=== PATIENT | female | born 1995 | race Caucasian/White ===

== ENCOUNTER 2023-10-02 16:37 | Emergency (ER) | payer BC, SELFPAY ==
[2023-10-02 16:39] VITALS: BP 117/79
--- NOTE | 2023-10-02 17:13 | ED.MUSCINJ ---
HPI-Injury
General
Chief Complaint: Musculo-Skeletal Complaint
Source: patient and family
Exam Limitations: none
Time Seen by Provider: 10/02/23 17:02
Nursing documentation reviewed up to this point in time: agreed with
Travel History
Have you had any contact with someone who has COVID-19?: No
Do you have any symptoms of coronavirus? Fever > 100 degrees, chills, cough, shortness of breath, sore throat, loss of taste or smell, muscle aches, or headache?: No
History of Present Illness-Injury
Is this injury a work related problem?: No
Is pt an associate of [facility]?: No
Initial Injury comments:
28-year-old female presents emergency department complaining of a dislocated right shoulder. She was doing PT exercises at the time. She says it often goes out but goes back in.
Past History
Past History
ED Past Medical History: Asthma, Psychiatric (Multiple Suicide attempts) and Other (Migraine headaches, OCD, autism, general anxiety, restless leg syndrome)
ED Past Surgical History: Other ([place] teeth extraction)
Social History
Tobacco: Non-smoker
Alcohol: None
Drug: None
Personal: Single
Living: with family (resides with parents)
Employment: Other (volunteering)
Family History
Family History: Other (no family history of cerebral aneurysm, brother and aunt with migraine headaches)
Review of Systems
Review of Systems
Allergies reviewed?: Yes
All Other Systems: Not applicable
Constitutional: Reports no symptoms
EENT: Reports no symptoms
Respiratory: Reports no symptoms
Cardiac: Reports no symptoms
ABD/GI: Reports no symptoms
: Reports no symptoms
Musculoskeletal: Reports joint pain
Skin: Reports no symptoms
Neurological: Reports numbness (Right hand)
Endocrine: Reports no symptoms
Hematologic/Lymphatic: Reports no symptoms
Psychiatric: Reports no symptoms
Phy Exam
Physical Exam
Physical Exam:
Physical Exam
General: Moderate distress, afebrile
Neck: supple. no meningeal signs. normal posterior pharynx
Heart: s1/s2 regular rate and rhythm, no murmur. equal radial
pulses.
HEENT: Pupils equal round reactive to light, EOMI
Lungs: no acute respiratory distress. clear bilaterally
Abdomen: normal bowel sounds. not tender. no CVAT
Neuro: alert and oriented. no focal neurological deficits cranial nerves II through XII intact
Skin: no rash
Psychiatric: well kept. interactive and cooperative
Extremities: no edema. no calf tenderness. negative homans. good distal pulses Limited range of motion right shoulder
Injury Course
Orders/Labs/Results
Orders:
Orders
10/02/23 17:11
IV Insert/Care/Rem.- Treatment PRN
HYDROmorphone [Dilaudid] 1 mg IV NOW STA
Ondansetron Injectable [Zofran] 4 mg IV NOW STA
Shoulder, Right 2 Views [CR Shoulder - Right Min 2 View] Urgent
Comment:
Reason For Exam: right shoulder pain, felt it pop out
10/02/23 19:09
Sling Right-Treatment ONCE
MDM/Problems Addressed
Differential Diagnosis Includes:
Shoulder dislocation, subluxation, sprain
MDM/Problems Addressed:
28-year-old female with right shoulder sprain versus subluxation. No signs of dislocation on x-ray, stable for discharge.
Chronic conditions affecting care: Other (Zeny-Danjahs)
Acute Exacerbation and/or Progression of Chronic Illness: Other (Zeny-Danlos)
*Radiology
Radiology exam reviewed: radiology read reviewed (Right shoulder x-ray no signs of dislocation)
*Pulse Oximetry
Patient hypoxic: no
*EKG
Interpreted by ED Provider?: NA
*Putty Glazer Interpretation
Rate: Putty Glazer- N/A
*Critical Care Note
Total Time (30-74mins, 75-104mins- exclusive of procedures): Not Applicable
Data Reviewed
Further Testing Considered But Not Given:
CT scan considered, but not indicated
Patient Management
Social determinants of health affecting care: Living situation
Discussion with other providers: Radiologist (Discussed x-ray with radiology)
Escalation/DeEscalation of care consider admission/obs:
Admit not indicated
ED Attending Note
-
Portions of this chart may have been created with voice recognition software.� Occasional wrong word or��sound alike� substitutions may have occurred due to the inherent limitations of voice recognition software.
Discharge Plan
Departure
Patient Disposition: Home (Routine Discharge)
Date of Disposition: 10/02/23
Time of Disposition: 19:05
Patient with high blood pressure during this ER visit?: No
Condition: Good
Discharge Problem:
Sprain of right shoulder
Instructions: Sprain (DC)
Prescriptions:
No Action
magnesium oxide 500 MG capsule
500 mg PO DAILY
riboflavin (vitamin B2) 400 MG tablet
400 mg PO DAILY
fluticasone propionate [Flovent HFA] 1 PUFF HFA aerosol inhaler
2 puff inhalation R BID Qty: 1 0RF
multivitamin with folic acid [Tab-A-Marshall] 1 TABLET tablet
1 tab PO BID
clonazepam 1 MG tablet
1 mg PO HS
fluoxetine 20 MG capsule
40 mg PO DAILY 0RF
lamotrigine 100 MG tablet
100 mg PO DAILY 0RF
aripiprazole 10 MG tablet
10 mg PO HS 0RF
lithium carbonate 300 MG capsule
300 mg PO HS 4 Days 0RF
oxycodone 5 mg tablet
5 mg PO Q4H PRN (Reason: pain) Qty: 7 0RF
prednisone 20 mg tablet
20 mg PO DAILY 4 Days Qty: 4 0RF
alprazolam [Xanax] 0.25 mg tablet
0.25 mg PO BID PRN (Reason: anxiety) Qty: 7 0RF
Referrals:
Elly Giraldo MD [Family Provider] -
Interventions
Interventions:
*Risk Screen - Suicide Last Done: 10/02/23 19:41
*General Assessment Last Done: 10/02/23 16:39
*Neglect/Abuse Screening Last Done: 10/02/23 19:41
ED- Fall Risk Assessment Last Done: 10/02/23 19:41
*ED COVID-19 Vaccine History Last Done: 10/02/23 16:39
*Nursing Disposition Last Done: 10/02/23 19:41
ED-Musculoskeletal Assessment Last Done: 10/02/23 17:20
Discharge Date and Time
Discharge Date/Time: 10/02/23 19:42
[2023-10-02] MEDS: DILAUDID 1 MG IV (17:21)
[2023-10-02] MEDS: ZOFRAN 4 MG IV (17:21)
[2023-10-02 19:30] VITALS: BP 117/68
== END 2023-10-02 19:42 | disposition home or self-care (01) ==
LOC: EMR 16:37
PROVIDERS: EMERGENCY PHYSICIAN Emergency Medicine; FAMILY PHYSICIAN Internal Medicine
DX: S43.401A Unspecified sprain of right shoulder joint, initial encounter (principal); X58.XXXA Exposure to other specified factors, initial encounter; J45.909 Unspecified asthma, uncomplicated; F42.9 Obsessive-compulsive disorder, unspecified; F84.0 Autistic disorder; G25.81 Restless legs syndrome; Z91.51 Personal history of suicidal behavior
CPT/HCPCS: 99283; 96374; 96375; 73030

== ENCOUNTER → 2023-10-18 07:33 | Outpatient (REF) | payer BC, SELFPAY | LOC: MRI 3T 07:33 | PROVIDERS: ATTENDING PHYSICIAN Orthopaedic Surgery | DX: M25.511 Pain in right shoulder (principal); M54.12 Radiculopathy, cervical region | CPT/HCPCS: 72141 ==

== ENCOUNTER 2023-12-11 19:04 | Emergency (ER) | payer BC, SELFPAY ==
[2023-12-11 19:05] VITALS: BMI 30.8
[2023-12-11 19:08] VITALS: BP 128/95
--- NOTE | 2023-12-11 21:38 | ED.GENMED ---
History of Present Illness
General
Chief Complaint: Back Pain
Source: patient
Exam Limitations: none
Time Seen by Provider: 12/11/23 21:21
Nursing documentation reviewed up to this point in time: agreed with
Travel History
Have you had any contact with someone who has COVID-19?: Yes
Comment: begining of november
Do you have any symptoms of coronavirus? Fever > 100 degrees, chills, cough, shortness of breath, sore throat, loss of taste or smell, muscle aches, or headache?: No
History of Present Illness
History of Present Illness:
The patient is a 28-year-old female with a past medical history of Ehlos Danlos syndrome, bipolar disorder, restless leg syndrome, and anxiety who reports mid to upper back pain that started yesterday while she was doing physical therapy. Patient
reports that the back pain seems to radiate into her chest. She reports it is worse with movement and breathing. Patient appears extremely anxious. She reports she is due for her bipolar medication. Patient denies cough and fever.
Past History
Past History
ED Past Medical History: Asthma, Psychiatric (Multiple Suicide attempts, bipolar disorder) and Other (Migraine headaches, OCD, autism, general anxiety, restless leg syndrome, Zeny-Danlos)
ED Past Surgical History: Other ([place] teeth extraction)
Social History
Tobacco: Non-smoker
Alcohol: None
Drug: None
Personal: Single
Living: with family (resides with parents)
Employment: Other (volunteering)
Family History
Family History: Other (no family history of cerebral aneurysm, brother and aunt with migraine headaches)
Review of Systems
Review of Systems
Allergies reviewed?: Yes
Other source history: family
All Other Systems: ROS reviewed and negative except as documented in HPI and ROS
Constitutional: Reports no symptoms
EENT: Reports no symptoms
Respiratory: Reports no symptoms
Cardiac: Reports chest pain
ABD/GI: Reports no symptoms
: Reports no symptoms
Musculoskeletal: Reports back pain
Skin: Reports no symptoms
Neurological: Reports no symptoms
Endocrine: Reports no symptoms
Hematologic/Lymphatic: Reports no symptoms
Psychiatric: Reports no symptoms
Phy Exam
Physical Exam
Physical Exam:
Physical Exam
General: Patient appears mildly tremulous and anxious but no acute distress
Neck: supple. no meningeal signs. normal psoterior pharynx
Heart: s1/s2 regular rate and rhythm, no murmur. equal radial pulses.
Lungs: no acute respiratory distress. clear bilaterally. Right upper thoracic soft tissue tenderness without erythema, rash or deformity
Abdomen: normal bowel sounds. not tender. no CVAT, no pulsatile mass
Neuro: alert and oriented. no focal neurological deficits, 5 out of 5 strength in all extremities. No saddle anesthesia
Skin: no rash
Psychiatric: well kept. interactive and cooperative, very anxious appearing
Extremities: no edema. no calf tenderness. negative homans. good distal pulses. Strong pulses in bilateral feet
Course
Orders/Labs/Results
Orders:
Orders
12/11/23 21:50
Electrocardiogram (*1) Urgent
Reason for Study: Chest Pain
CT Chest/abd/pelvis Angio W/wo Urgent
Comment:
Reason For Exam: CP into upper back, Ehlos Danlos
EKG- Treatment ONCE
Test Result ONCE
12/11/23 21:58
Complete Blood Count/With Diff Urgent
Comprehensive Metabolic Panel Urgent
HCG, Serum Qualitative Screen Urgent
Troponin I Urgent
12/12/23 00:07
Ketorolac [Toradol] 30 mg IV NOW STA
Abnormal Lab Results
12/11/23
21:58
RBC 3.76 L 10^6/uL
(4.20-5.40)
Hct 35.8 L %
(37.0-47.0)
MCH 32.2 H pg
(27.0-31.0)
Abs Immat Gran (auto) 0.1 H 10^3/uL
(0-0.05)
Immature Gran % 0.7 H %
(0-0.5)
Chloride 108 H mmol/L
(98-107)
Glucose 144 H mg/dl
(70-99)
12/11/23 21:58
12/11/23 21:58
Vital Signs
Initial and Last Documented VS:
Initial Vital Signs
Temp Pulse Resp BP Pulse Ox
98.5 F 112 18 128/95 97
12/11/23 19:08 12/11/23 19:08 12/11/23 19:08 12/11/23 19:08 12/11/23 19:08
Last Documented Vital Signs
Temp Pulse Resp BP Pulse Ox
98.5 F 61 16 130/70 97
12/11/23 19:08 12/11/23 22:00 12/11/23 22:00 12/11/23 22:00 12/11/23 22:00
MDM/Problems Addressed
Differential Diagnosis Includes:
PE, aortic dissection, muscle spasm
MDM/Problems Addressed:
Patient presents with acute chest pain and right upper back pain
Chronic conditions affecting care:
Connective tissue disease increases the risk of aortic dissection
*Radiology
Radiology exam reviewed: radiology read reviewed
*Pulse Oximetry
Patient hypoxic: no
*EKG
Interpreted by ED Provider?: NA
*Access Nurse Interpretation
Rate: normal
Interpretation: normal
Rhythm: sinus
*Critical Care Note
Total Time (30-74mins, 75-104mins- exclusive of procedures): Not Applicable
Data Reviewed
Review of Other/Old Records Reveals: Radiology Studies (Recent MRI of cervical spine done in October 2023 shows multiple herniated discs)
Source: patient and family
Update Note
Update Note:
Patient remains uncomfortable appearing. There is no sign of fractured vertebrae, PE or aortic dissection
ED Attending Note
-
Portions of this chart may have been created with voice recognition software.� Occasional wrong word or��sound alike� substitutions may have occurred due to the inherent limitations of voice recognition software.
Discharge Plan
Departure
Patient Disposition: Home (Routine Discharge)
Date of Disposition: 12/12/23
Time of Disposition: 00:08
Patient with high blood pressure during this ER visit?: Yes
Condition: Good
Covid-19: Not Applicable
Discharge Problem:
Upper back pain on right side
Instructions: Upper Back Pain (DC)
Prescriptions:
New
ketorolac 10 mg tablet
10 mg PO TID PRN (Reason: pain) Qty: 7 0RF
No Action
magnesium oxide 500 MG capsule
500 mg PO DAILY
riboflavin (vitamin B2) 400 MG tablet
400 mg PO DAILY
fluticasone propionate [Flovent HFA] 1 PUFF HFA aerosol inhaler
2 puff inhalation R BID Qty: 1 0RF
multivitamin with folic acid [Tab-A-Marshall] 1 TABLET tablet
1 tab PO BID
clonazepam 1 MG tablet
1 mg PO HS
fluoxetine 20 MG capsule
40 mg PO DAILY 0RF
lamotrigine 100 MG tablet
100 mg PO DAILY 0RF
aripiprazole 10 MG tablet
10 mg PO HS 0RF
lithium carbonate 300 MG capsule
300 mg PO HS 4 Days 0RF
oxycodone 5 mg tablet
5 mg PO Q4H PRN (Reason: pain) Qty: 7 0RF
prednisone 20 mg tablet
20 mg PO DAILY 4 Days Qty: 4 0RF
alprazolam [Xanax] 0.25 mg tablet
0.25 mg PO BID PRN (Reason: anxiety) Qty: 7 0RF
Referrals:
UNKNOWN - PT DOES,NOT KNOW [Family Provider] -
Activity Restrictions/Additional Instructions:
Do not combine the Toradol with ibuprofen, Aleve, Motrin or any other nonsteroidal anti-inflammatory medication within 6 hours of taking the Toradol.
Interventions
Interventions:
*Risk Screen - Suicide Last Done: 12/11/23 19:12
*General Assessment Last Done: 12/11/23 19:12
*Neglect/Abuse Screening Last Done: 12/11/23 19:12
ED- Fall Risk Assessment Last Done: 12/11/23 19:12
*ED COVID-19 Vaccine History Last Done: 12/11/23 19:12
ED-Musculoskeletal Assessment Last Done: 12/11/23 21:03
Discharge Date and Time
Print Language: BERMUDIAN
[2023-12-11 22:00] VITALS: BP 130/70
[2023-12-11 22:07] LABS: % Basophils 0.6 % (0-2); % Immature Granulocytes 0.7 % (0-0.5); % Lymphocytes 36.8 % (20.5-51.1); % Neutrophils 53.9 % (42.2-75.2); Absolute Basophils 0.1 10^3/uL (0-0.2); Absolute Eosinophils 0.1 10^3/uL (0-0.7); Absolute Immature Granulocytes 0.1 10^3/uL (0-0.05); Absolute Monocytes 0.6 10^3/uL (0.1-0.6); Absolute Neutrophils 4.4 10^3/uL (1.4-6.5); Hematocrit 35.8 % (37.0-47.0); Hemoglobin 12.1 g/dL (12.0-16.0); Mean Corp Hgb Conc. 33.8 g/dL (33.0-37.0); Mean Corpuscular Hgb 32.2 pg (27.0-31.0); Mean Corpuscular Volume 95.2 fL (81.0-99.0); Mean Platelet Volume 10.4 fL (7.4-10.4); Nucleated Red Blood Cells % 0 %; Platelet Count 226 10^3/uL (130-400); Red Blood Cell Count 3.76 10^6/uL (4.20-5.40); Red Cell Dist. Width 12.4 % (11.5-14.5); White Blood Cell Count 8.2 10^3/uL (4.8-10.8)
[2023-12-11 22:19] LABS: HCG, Serum Qualitative Screen Negative
[2023-12-11 22:22] LABS: ALT (SGPT) 17 U/L (0-35); AST (SGOT) 21 U/L (14-36); Albumin 3.5 g/dl (3.5-5.0); Alkaline Phosphatase 56 U/L (38-126); Blood Urea Nitrogen 16 mg/dl (7-17); Calcium 9.2 mg/dl (8.4-10.2); Carbon Dioxide 25 mmol/L (22-30); Chloride 108 mmol/L (98-107); Estimated Creatinine Clearance > 125 ml/min; Glucose 144 mg/dl (70-99); Potassium 4.3 mmol/L (3.5-5.1); Sodium 139 mmol/L (135-145); Total Bilirubin 0.2 mg/dl (0.2-1.3); Total Protein 6.5 g/dl (6.3-8.2); eGFR > 60.00
[2023-12-11 22:35] LABS: Troponin I < 0.012 ng/ml
[2023-12-11 23:30] VITALS: BP 118/89
[2023-12-12] MEDS: TORADOL 30 MG IV (00:18)
== END 2023-12-12 00:40 | disposition home or self-care (01) ==
LOC: EMR 19:04
PROVIDERS: EMERGENCY PHYSICIAN Emergency Medicine
DX: M54.6 Pain in thoracic spine (principal); Q79.60 Ehlers-Danlos syndrome, unspecified; F31.9 Bipolar disorder, unspecified; G25.81 Restless legs syndrome; F42.9 Obsessive-compulsive disorder, unspecified; F84.0 Autistic disorder; J45.909 Unspecified asthma, uncomplicated; Z91.51 Personal history of suicidal behavior
CPT/HCPCS: 99284; 96374; 71275; 74174; 80053; 84484; 84703; 85025; Q9967

== ENCOUNTER → 2024-10-10 18:24 | Emergency (ER) | payer BC, SELFPAY ==
[2024-10-10 18:25] VITALS: BP 126/81
--- NOTE | 2024-10-10 19:38 | ED.MUSCINJ ---
HPI-Injury
General
Chief Complaint: Musculo-Skeletal Complaint
Source: patient
Exam Limitations: none
Time Seen by Provider: 10/10/24 18:53
Nursing documentation reviewed up to this point in time: agreed with
History of Present Illness-Injury
Is this injury a work related problem?: No
Initial Injury comments:
Patient to Ed with complaint of right shoulder pain. [facility] zeny danlos syndrome She states her right shoulder dislocated this weekend while dancing. She was able to reduce dislocation on own. This has happened in the past. States since then she
reports intermittent pain to right shoulder. Brought to ED by mother for eval.
Past History
Past History
ED Past Medical History: Asthma, Psychiatric (Multiple Suicide attempts, bipolar disorder) and Other (Migraine headaches, OCD, autism, general anxiety, restless leg syndrome, Zeny-Danlos)
ED Past Surgical History: Other ([place] teeth extraction)
Social History
Tobacco: Non-smoker
Alcohol: None
Drug: None
Personal: Single
Living: with family (resides with parents)
Employment: Other (volunteering)
Family History
Family History: Other (no family history of cerebral aneurysm, brother and aunt with migraine headaches)
Review of Systems
Review of Systems
Allergies reviewed?: Yes
All Other Systems: ROS reviewed and negative except as documented in HPI and ROS
Constitutional: Reports no symptoms
Musculoskeletal: Reports joint pain (Pain to right shoulder)
Neurological: Reports no symptoms
Psychiatric: Reports no symptoms
Musculoskeletal Injury Exam
Musculoskeletal Injury Exam
Right Shoulder:
Pain with Movement?: Moderate
Tender to palpation?: Moderate
Soft tissue swelling?: None
External deformity and angulation?: None
Joint effusion?: None
Contusion?: None
Hematoma-local bleeding into tissue?: None
Strain- Sprain- Tear (Connective tissue injury)?: Moderate
Crepitus with movement?: No
Joint instability?: No
Malalignment/deformity?: No
Range of motion: Limited
Distal skin color and temperature: normal-warm & good color
Capillary Refill: normal
Normal distal neurovascular exam?: Yes
Peripheral Pulses: radial (right): 3+
Phy Exam
General Physical Exam
General Presentation: well appearing and no apparent distress
General age: appears stated age
General Skin: warm and dry
General Habitus: normal
General Mental: alert
Musculoskeletal Exam
Musculoskeletal Exam: neuro vasc intact and other (Right shoulder pain. limited ROM due to pain in shoulder. Neurovasc. intact.)
Skin Exam
Skin Exam: normal color and warm/dry
Psychiatric Exam
Psychiatric Exam: normal mood/affect
Injury Course
Orders/Labs/Results
Orders:
Orders
10/10/24 18:27
CR Shoulder - Right Min 2 View Urgent
Comment:
Reason For Exam: pain
*Radiology
Radiology exam reviewed: radiology read reviewed
*Pulse Oximetry
Patient hypoxic: no
*Critical Care Note
Total Time (30-74mins, 75-104mins- exclusive of procedures): Not Applicable
ED Attending Note
-
Portions of this chart may have been created with voice recognition software.� Occasional wrong word or��sound alike� substitutions may have occurred due to the inherent limitations of voice recognition software.
Discharge Plan
Departure
Patient Disposition: Home (Routine Discharge)
Date of Disposition: 10/10/24
Time of Disposition: 19:04
Patient with high blood pressure during this ER visit?: No
Condition: Good
Covid-19: Not Applicable
Discharge Problem:
Right shoulder pain
Instructions: Shoulder Dislocation (DC), Ibuprofen, How to Use a Shoulder Sling, Using Cold for Pain
Prescriptions:
No Action
magnesium oxide 500 MG capsule
500 mg PO DAILY
riboflavin (vitamin B2) 400 MG tablet
400 mg PO DAILY
fluticasone propionate [Flovent HFA] 1 PUFF HFA aerosol inhaler
2 puff inhalation R BID Qty: 1 0RF
multivitamin with folic acid [Tab-A-Marshall] 1 TABLET tablet
1 tab PO BID
clonazepam 1 MG tablet
1 mg PO HS
fluoxetine 20 MG capsule
40 mg PO DAILY 0RF
lamotrigine 100 MG tablet
100 mg PO DAILY 0RF
aripiprazole 10 MG tablet
10 mg PO HS 0RF
lithium carbonate 300 MG capsule
300 mg PO HS 4 Days 0RF
oxycodone 5 mg tablet
5 mg PO Q4H PRN (Reason: pain) Qty: 7 0RF
prednisone 20 mg tablet
20 mg PO DAILY 4 Days Qty: 4 0RF
alprazolam [Xanax] 0.25 mg tablet
0.25 mg PO BID PRN (Reason: anxiety) Qty: 7 0RF
ketorolac 10 mg tablet
10 mg PO TID PRN (Reason: pain) Qty: 7 0RF
Referrals:
Bruce Holden MD [Active] - Call in 1-3 days for appt
Interventions
Interventions:
*General Assessment Last Done: 10/10/24 18:25
Discharge Date and Time
Print Language: RWANDAN
== END | disposition home or self-care (01) ==
LOC: EMR 18:24
PROVIDERS: EMERGENCY PHYSICIAN Emergency Medicine; FAMILY PHYSICIAN Internal Medicine
DX: M25.511 Pain in right shoulder (principal); Q79.60 Ehlers-Danlos syndrome, unspecified; J45.909 Unspecified asthma, uncomplicated; F31.9 Bipolar disorder, unspecified; G43.909 Migraine, unspecified, not intractable, without status migrainosus; F42.9 Obsessive-compulsive disorder, unspecified; F84.0 Autistic disorder; G25.81 Restless legs syndrome; R56.9 Unspecified convulsions; F41.1 Generalized anxiety disorder; F90.9 Attention-deficit hyperactivity disorder, unspecified type; Z87.01 Personal history of pneumonia (recurrent); Z86.16 Personal history of COVID-19; Z91.51 Personal history of suicidal behavior
CPT/HCPCS: 99283; 73030